=== PATIENT | female | born 1995 | race Caucasian/White ===

== ENCOUNTER 2017-05-21 16:08 | Emergency (ER) | payer OTHER ==
[2017-05-21 16:17] VITALS: TEMP 97.7
[2017-05-21] MEDS ORDERED: NS 1,000 ML IV ONE ×2 (16:51→17:02)
[2017-05-21] MEDS ORDERED: KETOROLAC 30 MG/1 ML SDV IVP ONE (17:02)
[2017-05-21] MEDS ORDERED: METOCLOPRAMIDE 10 MG/2 ML VIAL IVP ONE (17:02)
[2017-05-21] MEDS ORDERED: ONDANSETRON 4 MG/2 ML VIAL IVP ONE (17:02)
--- NOTE | 2017-05-21 17:16 | EDPHY ---
H & P Stated Complaint: Headache Time Seen by Provider: 05/21/17 17:00 HPI/ROS: CHIEF COMPLAINT: headache HISTORY OF PRESENT ILLNESS: 22-year-old female presents to the emergency department complaining of a migraine headache intermittent times 10 days. Patient reports a history of migraines that usually go away with ibuprofen. This headache improves with ibuprofen, will go away and then will come back. Patient reports headache associated with nausea, photophobia and phonophobia. Headache is behind her eyes. Patient states this morning she felt like her face was flushed and swelling which began a panic attack with hyperventilation followed by tingling to her lips, hands and feet. Patient denies trauma. 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 She reports her house has been very hot during the day as she does not have air conditioning which is making it hard to sleep. She denies fevers or chills, no neck pain, no trauma. No nasal congestion, sore throat or cold symptoms. No chest pain or shortness of breath. Headache is moderate in nature. REVIEW OF SYSTEMS: A comprehensive 10 point review of systems is otherwise negative aside from elements mentioned in the history of present illness. Source: Patient Exam Limitations: No limitations - Personal History LMP (Females 10-55): 22-28 Days Ago Current Tetanus/Diphtheria Vaccine: Yes - Medical/Surgical History Hx Asthma: No Hx Chronic Respiratory Disease: No Hx Diabetes: No Hx Cardiac Disease: No Hx Renal Disease: No Hx Cirrhosis: No Hx Alcoholism: No Hx HIV/AIDS: No Hx Splenectomy or Spleen Trauma: No Other PMH: migraines - Social History Smoking Status: Never smoked Alcohol Use: None Drug Use: None - Physical Exam Exam: Physical Exam Gen: Alert and Oriented, NAD HEENT: PERRL, moist mucous membranes NECK: no meningismus CV: regular rate and regular rhythm PULM: CTAB, no wheezes ABDOMEN: soft, non tender to palpation, BS present NEURO: Neurologically grossly intact, normal cerebellar exam EXTREMITIES: normal appearing SKIN: no rash or break in skin on exposed skin PSYCH: answers questions appropriately. Constitutional: Initial Vital Signs Temperature (C) 36.5 C 05/21/17 16:15 Heart Rate 76 05/21/17 16:15 Respiratory Rate 20 05/21/17 16:15 Blood Pressure 126/77 H 05/21/17 16:15 O2 Sat (%) 98 05/21/17 16:15 O2 Delivery Mode Room Air Allergies/Adverse Reactions: No Known Allergies Allergy (Verified 05/21/17 16:14) Home Medications: Medication Instructions Recorded BENADRYL 05/21/17 IBUPROFEN 05/21/17 Medical Decision Making ED Course/Re-evaluation: IV established, CBC, and metabolic panel ordered. Patient is given a migraine cocktail with Zofran, Toradol, Benadryl and Reglan. She is also given Tylenol. 1930 Pt feeling better. She is PO challenged. Pt reports headache and nausea are gone. Pt has been given a neurologist for follow up so she can establish care for her chronic headaches. Patient has a normal neurological exam. I discussed return precautions for worsening symptoms, fevers, neck pain, new symptoms or concerns. Patient is comfortable with this plan. Differential Diagnosis: The differential diagnosis for the patient's headache included but was not limited to subarachnoid hemorrhage, migraine headache, tension headache and infectious causes such as meningitis, pharyngitis and sinusitis. - Data Points Laboratory Results: Laboratory Results 05/21/17 16:51 05/21/17 16:51 05/21/17 05/21/17 05/21/17 16:51 16:51 16:51 WBC 9.48 10^3/uL 10^3/uL (3.80-9.50) RBC 4.50 10^6/uL 10^6/uL (4.18-5.33) Hgb 14.3 g/dL g/dL (12.6-16.3) Hct 41.8 % % (38.0-47.0) MCV 92.9 fL fL (81.5-99.8) MCH 31.8 pg pg (27.9-34.1) MCHC 34.2 g/dL g/dL (32.4-36.7) RDW 12.0 % % (11.5-15.2) Plt Count 330 10^3/uL 10^3/uL (150-400) MPV 10.7 fL fL (8.7-11.7) Neut % (Auto) 82.2 % H % (39.3-74.2) Lymph % (Auto) 11.1 % L % (15.0-45.0) [place] % (Auto) 5.6 % % (4.5-13.0) Eos % (Auto) 0.2 % L % (0.6-7.6) Baso % (Auto) 0.5 % % (0.3-1.7) Nucleat RBC Rel Count 0.0 % % (0.0-0.2) Absolute Neuts (auto) 7.79 10^3/uL H 10^3/uL (1.70-6.50) Absolute Lymphs (auto) 1.05 10^3/uL 10^3/uL (1.00-3.00) Absolute Monos (auto) 0.53 10^3/uL 10^3/uL (0.30-0.80) Absolute Eos (auto) 0.02 10^3/uL L 10^3/uL (0.03-0.40) Absolute Basos (auto) 0.05 10^3/uL 10^3/uL (0.02-0.10) Absolute Nucleated RBC 0.00 10^3/uL 10^3/uL (0-0.01) Immature Gran % 0.4 % % (0.0-1.1) Immature Gran # 0.04 10^3/uL 10^3/uL (0.00-0.10) Sodium 142 mEq/L mEq/L (134-144) Potassium 4.1 mEq/L mEq/L (3.5-5.2) Chloride 105 mEq/L mEq/L (97-110) Carbon Dioxide 23 mEq/l mEq/l (22-31) Anion Gap 14 mEq/L mEq/L (8-16) BUN 13 mg/dL mg/dL (7-23) Creatinine 0.9 mg/dL mg/dL (0.6-1.0) Estimated GFR > 60 Glucose 113 mg/dL H mg/dL (70-100) Calcium 10.2 mg/dL mg/dL (8.5-10.4) Beta HCG, Qual NEGATIVE Medications Given: Discontinued Medications Acetaminophen (Tylenol) 650 mg PO EDNOW ONE Stop: 05/21/17 17:23 Last Admin: 05/21/17 18:54 Dose: 650 mg Dexamethasone (Decadron Injection) 10 mg IVP EDNOW ONE Stop: 05/21/17 18:54 Last Admin: 05/21/17 18:57 Dose: 10 mg Diphenhydramine HCl (Benadryl Injection) 50 mg IVP EDNOW ONE Stop: 05/21/17 17:03 Last Admin: 05/21/17 17:14 Dose: 50 mg Sodium Chloride (Ns) 1,000 mls @ 0 mls/hr IV ONCE ONE PRN Reason: Wide Open Stop: 05/21/17 16:52 Last Admin: 05/21/17 17:14 Dose: Not Given Sodium Chloride (Ns) 1,000 mls @ 0 mls/hr IV ONCE ONE; Wide Open PRN Reason: Protocol Stop: 05/21/17 17:03 Last Admin: 05/21/17 17:14 Dose: 1,000 mls Ketorolac Tromethamine (Toradol) 30 mg IVP EDNOW ONE Stop: 05/21/17 17:03 Last Admin: 05/21/17 17:14 Dose: 30 mg Metoclopramide HCl (Reglan Injection) 10 mg IVP EDNOW ONE Stop: 05/21/17 17:03 Last Admin: 05/21/17 17:14 Dose: 10 mg Ondansetron HCl (Zofran) 4 mg IVP EDNOW ONE Stop: 05/21/17 17:03 Last Admin: 05/21/17 17:15 Dose: 4 mg Departure - Departure Disposition: Home, Routine, Self-Care Clinical Impression: Headache Qualifiers: Headache type: unspecified Headache chronicity pattern: acute headache Intractability: not intractable Qualified Code(s): R51 - Headache Condition: Good Instructions: Migraine Headache (ED), General Headache (ED) Additional Instructions: Rest, drink plenty of fluids, take 600 mg of ibuprofen every 8 hours with food as needed for headache, can also take 650 mg of Tylenol every 8 hours. Follow up with the neurologist to establish care for your chronic headaches. Return to the emergency department for worsening symptoms, new symptoms or concerns. Referrals: Elliot Canseco DO [Doctor of Osteopathy] - As per Instructions (Neurologist on- call) Stand Alone Forms: Work Excuse
[2017-05-21] MEDS ORDERED: ACETAMINOPHEN 325 MG TAB PO ONE (17:22)
[2017-05-21 17:28] LABS: % IMMATURE GRANULYOCYTES 0.4 % (0.0-1.1); ABSOLUTE IMMATURE GRANULOCYTES 0.04 10^3/uL (0.00-0.10); ADD DIFF? NO; ADD MORPH? NO; ADD SCAN? NO; ATYPICAL LYMPHOCYTE FLAG 0 (0-99); FRAGMENT RBC FLAG 0 (0-99); HEMATOCRIT 41.8 % (38.0-47.0); HEMOGLOBIN 14.3 g/dL (12.6-16.3); LEFT SHIFT FLG 10 (0-99); LIPEMIA HEMOLYSIS FLAG 90 (0-99); MEAN CELL HEMOGLOBIN 31.8 pg (27.9-34.1); MEAN CELL HEMOGLOBIN CONCENTR. 34.2 g/dL (32.4-36.7); MEAN CELL VOLUME 92.9 fL (81.5-99.8); MEAN PLATELET VOLUME 10.7 fL (8.7-11.7); PLATELET CLUMPS FLAG 20 (0-99); PLATELET COUNT 330 10^3/uL (150-400)
[2017-05-21 17:42] LABS: ANION GAP 14 mEq/L (8-16); CALCIUM 10.2 mg/dL (8.5-10.4); CARBON DIOXIDE 23 mEq/l (22-31); CHLORIDE 105 mEq/L (97-110); CREATININE 0.9 mg/dL (0.6-1.0); GLOMERULAR FILTRATION RATE > 60; GLUCOSE 113 mg/dL (70-100); POTASSIUM 4.1 mEq/L (3.5-5.2); SODIUM 142 mEq/L (134-144)
[2017-05-21] MEDS ORDERED: DEXAMETHASONE 10 MG/ML VIAL IVP ONE (18:53)
[2017-05-21 19:48] VITALS: BP 118/72; PULSE 89; RESP 16; O2SAT 98
== END 2017-05-21 19:47 | disposition home or self-care (01) ==
DX: R51 Headache (principal); E86.9 Volume depletion, unspecified
CPT/HCPCS: 96374; J1200; J1885; J2405; J2765